=== PATIENT | male | born 1960 | race African-American/Black ===

== ENCOUNTER 2021-10-08 09:02 | Observation (INO) ==
--- NOTE | 2021-10-08 09:17 | Emergency Department Note ---
History of Present Illness General Chief complaint: Cardiac Assessment Stated complaint: CHEST PRESSURE, WEAKNESS, FATIGUE Time Seen by Provider: 10/08/21 09:04 Source: patient History of Present Illness Provider complaint: Chest pain Onset (ago): hour(s) Location: chest and left Radiation: neck Severity: moderate Pain Consistency: + intermittent Quality: + other (Pressure) Relieved By: + medication (3 sublingual nitroglycerin) Associated symptoms: + chest pain, + diaphoresis, + shortness of breath and + other (Lightheadedness); no cough, no fever/chills or no nausea/vomiting This is a 61-year-old male with a history of hypertension and high cholesterol presenting with chest pain starting upon awakening at 6 AM today. The patient states its been intermittent throughout the morning. He describes it as a pressure in the upper left part of his chest with radiation into his neck. He states it is associated with sweating and shortness of breath. In the ambulance he did receive aspirin as well as 3 sublingual nitroglycerin sprays. He states his chest pain is now completely resolved. He did feel lightheaded after receiving the nitroglycerin but states that he felt somewhat lightheaded before that as well. He denies any history of coronary artery disease. He does state that his father from a heart attack. He is an occasional smoker. He denies any fevers, cough or cold symptoms, abdominal pain, vomiting, diarrhea or urinary symptoms. Home Medications Medication Instructions Recorded Confirmed Type amlodipine 10 mg PO DAILY 10/08/21 10/08/21 History atorvastatin 10 mg tablet 10 mg PO DAILY 10/08/21 10/08/21 History carvedilol 3.125 mg tablet 3.125 mg PO BID 10/08/21 10/08/21 History spironolactone 25 mg tablet 25 mg PO DAILY 10/08/21 10/08/21 History Past Med/Surg History Medical History (Updated 10/08/21 @ 16:48 by Sarmad Dvei MD) High cholesterol Hypertension Tobacco abuse Surgical History No significant past surgical history Family History Father Coronary heart disease Mother Hypertension Social History Smoking Status: Current every day smoker Hx Alcohol Use: No Hx Substance Use: No Preferred Language: Tamazight Communication Ability: Effective 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 and A total of 10 systems reviewed and were otherwise negative Physical Exam Vital Signs Vital Signs - 24 hr 10/08/21 09:15 10/08/21 09:21 10/08/21 10:45 Temperature 36.7 C Temperature Source Oral Pulse Rate 74 Pulse Rate [Apical] 68 Respiratory Rate 18 18 Respiratory Depth Normal Normal Blood Pressure 137/81 Blood Pressure Mean 99 Blood Pressure Position Lying Pulse Oximetry 95 95 97 Oxygen Delivery Method Room Air Room Air Room Air Sepsis Recent Fever Within 48 Hours No Sepsis New/Unexplained Change in Mental Status No Sepsis Action Taken by Nursing No Action Required Constitutional: Vital signs reviewed. Eyes: Pupils are equal round reactive to light. Conjunctiva are noninjected. ENT: Pharynx is clear without erythema or exudate. Mucous membranes are moist. Neck supple without meningeal signs. Respiratory: Clear to auscultation bilaterally. Breath sounds are equal bila terally. Cardiovascular: Regular rate and rhythm. No rubs or gallops. GI: Soft, nondistended and nontender. Bowel sounds are present. Rectal: Guaiac negative light brown stool. Musculoskeletal: No peripheral edema. No lower extremity tenderness. Integumentary: No cyanosis. or jaundice. Neurological: The patient is awake and alert. No focal deficits. Psychiatric: Normal affect. Not anxious appearing. Course Administered Medications Heparin Sodium/Dextrose (Heparin Sodium/Dextrose) 25,000 units in 500 mls @ 20 mls/hr IV .Q24H HERB; Protocol Stop: 11/07/21 10:29 Last Admin: 10/08/21 10:29 Dose: 1,000 units/hr, 20 mls/hr Documented by: [id number] Cosigned by: [id number] Nicotine (Nicotine 21 Mg/24 Hr Tdsy) 21 mg TD QAM HERB Stop: 11/07/21 12:59 Last Admin: 10/08/21 14:14 Dose: 21 mg Documented by: [id number] Discontinued Medications Heparin Sodium (Porcine) (Heparin Sod (Porcine) 1000 Unit/Ml) 1 units IV NOW ONE Stop: 10/08/21 10:26 Last Admin: 10/08/21 10:29 Dose: 4,000 units Documented by: [id number] Cosigned by: [id number] Heparin Sodium/Dextrose (Heparin Iv Adult Wt-Based Low-Dose With Bolus Protocol) 1 ea N/A NOW STA; Protocol Stop: 10/08/21 10:10 Last Admin: 10/08/21 10:44 Dose: Not Given Documented by: [id number] Critical Care Time Critical Care Time: Yes Total Critical Care Time: 35 I have personally spent approximately 35 minutes of critical care time in the direct management of this patient. This includes bedside care, interpretation of diagnostic studies, and testing, discussion with consultants, patient, and family members, and other required patient management activities. These minutes are in excess of all separately billable procedures. Medical Decision Making Differential Diagnosis Unstable angina, CT, GERD, pleurisy, pericarditis Medical Records Attestation: I reviewed the patient's medical records. I did perform a limited focused review of portions of the patient's old chart on the electronic medical record. The patient has had no prior visits to [facility]. Home Medications Current Medication List: was personally reviewed by me Laboratory Data Attestation: I reviewed the patient's lab results. Result diagrams: 10/08/21 09:10 10/08/21 09:10 Lab Results 10/08/21 10/08/21 10/08/21 Range/Units 09:10 09:10 09:21 WBC 10.12 (4.8-10.8) K/uL RBC 5.07 (4.7-6.1) M/uL Hgb 14.9 (14.0-18.0) g/dL Hct 43.2 (42-52) % MCV 85.2 (80-100) fL MCH 29.4 (25-34) pg MCHC 34.5 (32-36) g/dL RDW Std Deviation 41.6 (36.4-46.3) fL RDW Coeff of Arturo 13.4 (11.5-14.5) % Plt Count 227 (130-400) K/uL MPV 11.2 H (7.4-10.4) fL Immature Gran % (Auto) 0.3 % Neut % (Auto) 71.7 % Lymph % (Auto) 19.1 % [place] % (Auto) 8.3 % Eos % (Auto) 0.4 % Baso % (Auto) 0.2 % Neut # (Auto) 7.26 H (1.4-6.5) K/uL Lymph # (Auto) 1.93 (1.2-3.4) K/uL [place] # (Auto) 0.84 H (0.11-0.59) K/uL Eos # (Auto) 0.04 (0-0.5) K/uL Baso # (Auto) 0.02 (0-0.2) K/uL Immature Gran # (Auto) 0.03 H (0.00-0.02) K/uL PT 11.5 (9.0-12.0) Seconds INR 1.1 (0.9-1.1) APTT 32.5 H (21.0-31.0) Seconds PTT Ratio 1.2 Sodium 137 (136-145) mmol/L Potassium 4.1 (3.5-5.1) mmol/L Chloride 102 (98-107) mmol/L Carbon Dioxide 26 (21-32) mmol/L Anion Gap 9 (3-11) BUN 9 (6-23) mg/dl Creatinine 0.86 (0.6-1.4) mg/dl Est Cr Clr Drug Dosing 107.8 ml/min Est GFR ( Amer) 108.5 ml/min Est GFR (Non-Af Amer) 93.6 ml/min BUN/Creatinine Ratio 10.5 (10-20) Glucose 96 (70-99(Fasting)) mg/dl Calcium 9.6 (8.5-10.1) mg/dl Total Bilirubin 0.5 (0.2-1.0) mg/dl AST 19 (13-39) U/L ALT 22 (7-52) U/L Alkaline Phosphatase 87 (34-104) U/L Troponin I High Sens 48.5 H (0-20) pg/ml Total Protein 7.5 (6.0-8.3) gm/dl Albumin 4.1 (3.4-5.0) gm/dl Globulin 3.4 (2.5-4.0) gm/dl Albumin/Globulin Ratio 1.2 (0.9-2) Lipase 22 (11-82) U/L SARS-CoV-2, RNA, NAAT (NEGATIVE) 10/08/21 10/08/21 Range/Units 09:23 10:37 WBC (4.8-10.8) K/uL RBC (4.7-6.1) M/uL Hgb (14.0-18.0) g/dL Hct (42-52) % MCV (80-100) fL MCH (25-34) pg MCHC (32-36) g/dL RDW Std Deviation (36.4-46.3) fL RDW Coeff of Arturo (11.5-14.5) % Plt Count (130-400) K/uL MPV (7.4-10.4) fL Immature Gran % (Auto) % Neut % (Auto) % Lymph % (Auto) % [place] % (Auto) % Eos % (Auto) % Baso % (Auto) % Neut # (Auto) (1.4-6.5) K/uL Lymph # (Auto) (1.2-3.4) K/uL [place] # (Auto) (0.11-0.59) K/uL Eos # (Auto) (0-0.5) K/uL Baso # (Auto) (0-0.2) K/uL Immature Gran # (Auto) (0.00-0.02) K/uL PT (9.0-12.0) Seconds INR (0.9-1.1) APTT (21.0-31.0) Seconds PTT Ratio Sodium (136-145) mmol/L Potassium (3.5-5.1) mmol/L Chloride (98-107) mmol/L Carbon Dioxide (21-32) mmol/L Anion Gap (3-11) BUN (6-23) mg/dl Creatinine (0.6-1.4) mg/dl Est Cr Clr Drug Dosing ml/min Est GFR ( Amer) ml/min Est GFR (Non-Af Amer) ml/min BUN/Creatinine Ratio (10-20) Glucose (70-99(Fasting)) mg/dl Calcium (8.5-10.1) mg/dl Total Bilirubin (0.2-1.0) mg/dl AST (13-39) U/L ALT (7-52) U/L Alkaline Phosphatase (34-104) U/L Troponin I High Sens 48.7 H (0-20) pg/ml Total Protein (6.0-8.3) gm/dl Albumin (3.4-5.0) gm/dl Globulin (2.5-4.0) gm/dl Albumin/Globulin Ratio (0.9-2) Lipase (11-82) U/L SARS-CoV-2, RNA, NAAT NEGATIVE (NEGATIVE) Imaging Data Radiologist's Impression: Chest X-Ray 10/08/21 09:10 XR chest 1V portable HISTORY: 61 years-old Male Chest Pain acute atypical chest pain COMPARISON: None TECHNIQUE: Portable AP view of the chest FINDINGS: The cardiac silhouette is mildly enlarged. Atherosclerosis of the thoracic aorta. Azygos lobe and fissure. No pneumothorax, large pleural effusion, overt or overt pulmonary edema. Mild left basilar opacities. Partial emphysema with mild interstitial coarsening. Degenerative changes of the shoulders and spine. IMPRESSION: 1. Mild retrocardiac left basilar opacities are suggestive of atelectasis versus pneumonitis.. 2. Questioned pulmonary emphysema. ACT 112: Negative or not required by law. The above report was generated using voice recognition software. It may contain grammatical, syntax or spelling errors. Electronically signed by: Tobi Zepeda M.D. 10/08/2021 9:30 AM ECG Data Attestation: I personally reviewed and interpreted this ECG as follows: Indication: + chest pain Rate (beats per minute): 75 Rhythm: + normal sinus ECG ST segments: + ST depression, + T-wave inversions and + repolarization abnormalities ECG Findings: + PACs and + LVH Comparison ECG Date: no prior available Additional Comments: Repeat twelve-lead EKG performed at 9:34 AM per my interpretation demonstrates sinus rhythm at a rate of 71 bpm. He has continued PACs as well as LVH with repolarization abnormality. He has continued T wave inversions and ST depressions. The EKG is essentially unchanged from the prior 1. He has no chest pain or symptoms at the time of the EKG. MDM Narrative I did evaluate the patient as noted above. The patient is presenting with chest pressure since this morning upon waking up. He states its been intermittent and he was given 3 sublingual nitroglycerin in the ambulance. His chest pain is now completely resolved. He was also given aspirin prior to arrival. I did place an order for continuous cardiac monitoring. The monitor showed normal sinus rhythm at a rate of 74 bpm. I did order and personally review the patient's 12-lead EKG as described above. He has LVH with repolarization abnormalities. There are T wave inversions in the precordial leads over V4 to V6. He also has T wave inversions in the high lateral leads and some ST depressions in the inferior leads. No old EKG is available for comparison. I did order a second EKG as noted above. He has continued ST depressions and T wave inversions. No change from prior EKG. He is symptom-free currently other than feeling weak. I didorder and personally reviewed the images of the patient's chest x-ray as described above. He appears to have possible at electasis and pulmonary emphysema. His mediastinum is not widened. I did order and review the patient's blood work as noted in the electronic medical record. CBC is unremarkable without leukocytosis or anemia. Platelet count is 227. CMP is unremarkable. Lipase is 22. High-sensitivity troponin is slightly elevated at 48.5. I did reassess the patient. He is feeling generally weak but denies any shortness of breath or chest discomfort or pain. I did discuss the test results with him. I was concerned about acute coronary syndrome given his symptomatology and his abnormal EKG and positive troponin. I did recommend anticoagulation with heparin. I did discuss risks and benefits. He was in agreement. He is guaiac negative on rectal examination. I did start him on a heparin bolus and drip. I did discuss case with the machine adjuster leader case trim as well as Dr. Moraes of internal medicine. He will consult the material handler 2nd shift. Impression & Plan NSTEMI (non-ST elevated myocardial infarction) Discharge Plan Visit Data Chief Complaint: Cardiac Assessment Stated Complaint: CHEST PRESSURE, WEAKNESS, FATIGUE ED Provider: Sarmad Devi Discharge Problem: NSTEMI (non-ST elevated myocardial infarction) Patient Disposition: Admitted As Inpatient Discharge Instructions Interventions: ED Discharge Assessment Last Done: 10/08/21 12:11
[2021-10-08 09:26] LABS: Basophils # (auto) 0.02 K/uL (0-0.2); Basophils % (auto) 0.2 %; Eosinophils # (auto) 0.04 K/uL (0-0.5); Eosinophils % (auto) 0.4 %; Hematocrit (blood only) 43.2 % (42-52); Hemoglobin 14.9 g/dL (14.0-18.0); Immature Granulocytes # (auto) 0.03 K/uL (0.00-0.02); Immature Granulocytes % (auto) 0.3 %; Lymphocytes # (auto) 1.93 K/uL (1.2-3.4); Lymphocytes % (auto) 19.1 %; Mean Corpuscular Hemoglobin 29.4 pg (25-34); Mean Corpuscular Hgb Conc 34.5 g/dL (32-36); Mean Corpuscular Volume 85.2 fL (80-100); Mean Platelet Volume 11.2 fL (7.4-10.4); Monocytes # (auto) 0.84 K/uL (0.11-0.59); Monocytes % (auto) 8.3 %; Neutrophils # (auto) 7.26 K/uL (1.4-6.5); Neutrophils % (auto) 71.7 %; Platelet Count 227 K/uL (130-400); RDW Coefficient of Variation 13.4 % (11.5-14.5); RDW Standard Deviation 41.6 fL (36.4-46.3); Red Blood Count 5.07 M/uL (4.7-6.1); White Blood Count 10.12 K/uL (4.8-10.8)
--- NOTE | 2021-10-08 09:33 | XRay Report ---
XR chest 1V portable HISTORY: 61 years-old Male Chest Pain acute atypical chest pain COMPARISON: None TECHNIQUE: Portable AP view of the chest FINDINGS: The cardiac silhouette is mildly enlarged. Atherosclerosis of the thoracic aorta. Azygos lobe and fis sure. No pneumothorax, large pleural effusion, overt or overt pulmonary edema. Mild left basilar opac ities. Partial emphysema with mild interstitial coarsening. Degenerative changes of the shoulders and spine. IMPRESSION: 1. Mild retrocardiac left basilar opacities are suggestive of atelectasis versus pneumonitis.. 2. Questioned pulmonary emphysema. ACT 112: Negative or not required by law. The above report was generated using voice recognition software. It may contain grammatical, syntax o r spelling errors. Electronically signed by: Tobi Zepeda M.D. 10/08/2021 9:30 AM
[2021-10-08 09:52] LABS: Albumin Globulin Ratio 1.2 (0.9-2); Albumin Level 4.1 gm/dl (3.4-5.0); BUN Creatinine Ratio 10.5 (10-20); Bilirubin,Total 0.5 mg/dl (0.2-1.0); Calcium 9.6 mg/dl (8.5-10.1); Creatinine Clr Calc Pharmacy 107.8 ml/min; Est GFR (African American) 108.5 ml/min; Est GFR (Non-African American) 93.6 ml/min; Globulin 3.4 gm/dl (2.5-4.0); Potassium 4.1 mmol/L (3.5-5.1); Total Protein 7.5 gm/dl (6.0-8.3); Troponin I High Sensitivity 48.5 pg/ml (0-20)
[2021-10-08] MEDS ORDERED: Heparin IV Adult Wt-Based Low-Dose WITH Bolus Protocol STA (10:09)
[2021-10-08] MEDS ORDERED: HEPARIN SOD (PORCINE) 1000 UNIT/ML IV ONE (10:25)
[2021-10-08 10:26] LABS: INR 1.1 (0.9-1.1); Partial Thromboplastin Ratio 1.2; Partial Thromboplastin Time 32.5 Seconds (21.0-31.0); Prothrombin Time 11.5 Seconds (9.0-12.0)
[2021-10-08] MEDS: HEPARIN SODIUM/DEXTROSE 25,000 UNITS/500 ML BAG IV SCH (10:29)
--- NOTE | 2021-10-08 11:26 | History & Physical Report ---
Date of Service October 08, 2021 Assessment & Plan (1) NSTEMI (non-ST elevated myocardial infarction): Plan: Convincing story for NSTEMI in a high-risk patient. EKG concerning for anterior STEMI to me with ST elevations in V1-V3 and reciprocal changes in II & III. EKG discussed with on-call interventionalist who feels these are typical LVH changes, but agrees with treating as below: - Continue ASA (324 mg given in ambulance) - Continue heparin gtt - Continue beta-cricket and statin (raised both on admission) - Treat any further chest pain with nitro - Echocardiogram - Cardiology consult (2) Hypertension: Plan: Quite resistant per patient, requiring 3 meds. - Continue beta-cricket - Hold amlodipine and spironolactone for now -> Restart as needed or consider ACEi/ARB given concern for CAD. (3) Tobacco abuse: Plan: Smokes 4-5 cigarettes a day. Counseled on cessation. - Patient requests a nicotine patch; ordered (4) DVT prophylaxis: Plan: Presently on heparin gtt for NSTEMI History of Present Illness Primary Care Provider: NO PCP 61yo M w/ hx of HTN who presents with NSTEMI. The patient reports that he was just getting into the shower around 6:30am this morning when he had an acute onset of left-sided chest pain that radiated up to the neck. He also felt diaphoretic and short of breath. He finished his shower and reports that the pain improved somewhat with drinking cold water. 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 He denies any palpitations or nausea/vomiting with this. He works at [employer], and an RN saw him and said he did not look good. He reports continued 5-6/10 pain this entire time (hours, per his report). The RN called an ambulance. In the ambulance, he was given ASA 324 mg and 3 sublingual nitroglycerin which relieved the pain. The pain has not returned, and his current pain level is a 0/10 during my interview. Home Medications Medication Instructions Recorded Confirmed Type amlodipine 10 mg PO DAILY 10/08/21 10/08/21 History atorvastatin 10 mg tablet 10 mg PO DAILY 10/08/21 10/08/21 History carvedilol 3.125 mg tablet 3.125 mg PO BID 10/08/21 10/08/21 History spironolactone 25 mg tablet 25 mg PO DAILY 10/08/21 10/08/21 History Past Med/Surg History Medical History (Updated 10/08/21 @ 11:18 by James Moraes MD) High cholesterol Hypertension Tobacco abuse Surgical History No significant past surgical history Family History Father Coronary heart disease Mother Hypertension Social History Smoking Status: Current some day smoker Preferred Language: Eritre[place] Feels Safe at Home: Yes Review of Systems Review of Systems: All systems reviewed & are unremarkable except as noted in HPI & below Physical Exam Constitutional: WD/WN, vitals as above Eyes: EOM intact bilaterally; no conjunctival abnormality ENMT: external ear and nose normal, oropharynx normal Neck: trachea midline, no thyromegaly normal visual inspection Respiratory: normal respiratory effort, lungs clear to auscultation no respiratory distress Cardiovascular: RRR, no murmur, no edema Gastrointestinal (Abdomen): Inspection/Auscultation: abdomen normal to inspection; abdomen not distended Musculoskeletal: no cyanosis or clubbing, extremities motor strength 5/5 Skin: no rashes, warm and dry Neurologic: moves all extremities and awake Psychiatric: Orientation: alert, oriented to person and cooperative Results & Data Results & Data ([facility]) Vital Signs (Past 12 Hours) Vital Signs Temp Pulse Pulse Resp BP Pulse Ox 10/08/21 10:45 68 18 97 10/08/21 09:21 95 10/08/21 09:15 36.7 C 74 18 137/81 95 Code Status & VTE Plan VTE Prophylaxis Plan VTE Prophylaxis will be ordered: Yes PG Care Time/CCT Total # of Minutes Spent Total Time Spent with Patient: Total time spent is greater than 50% in coordination of care (as documented) at patient's floor/unit and/or counseling patient: Coding Level of Care Code 61227 Initial Inpt Care Lvl 3 Diagnoses NSTEMI (non-ST elevated myocardial infarction) I21.4 Hypertension I10 DVT prophylaxis Z29.9 Tobacco abuse Z72.0
[2021-10-08] MEDS ORDERED: ONDANSETRON INJ 2 MG/ML 2 ML VIAL IV PRN (12:39)
[2021-10-08] MEDS ORDERED: ACETAMINOPHEN 325 MG TAB PO PRN (12:39)
[2021-10-08] MEDS: NICOTINE 21 MG/24 HR TDSY TD SCH (14:14)
--- NOTE | 2021-10-08 15:04 | XCELERA ---
[id number]
[2021-10-08 17:01] LABS: Partial Thromboplastin Ratio 1.4; Partial Thromboplastin Time 39.7 Seconds (21.0-31.0)
[2021-10-08] MEDS: carvediloL 3.125 MG TAB PO SCH (20:31)
[2021-10-09 01:26] LABS: Partial Thromboplastin Ratio 1.5; Partial Thromboplastin Time 40.8 Seconds (21.0-31.0)
[2021-10-09] MEDS: HEPARIN SODIUM/DEXTROSE 25,000 UNITS/500 ML BAG IV SCH (06:30)
[2021-10-09 08:03] LABS: Hematocrit (blood only) 40.6 % (42-52); Hemoglobin 13.7 g/dL (14.0-18.0); Mean Corpuscular Hgb Conc 33.7 g/dL (32-36); Mean Platelet Volume 11.3 fL (7.4-10.4); Platelet Count 196 K/uL (130-400); RDW Coefficient of Variation 13.7 % (11.5-14.5); RDW Standard Deviation 43.3 fL (36.4-46.3); Red Blood Count 4.72 M/uL (4.7-6.1); White Blood Count 4.78 K/uL (4.8-10.8)
[2021-10-09] MEDS: ASPIRIN 81 MG CHEW PO SCH (08:10)
[2021-10-09] MEDS: NICOTINE 21 MG/24 HR TDSY TD SCH (08:10)
[2021-10-09] MEDS: carvediloL 3.125 MG TAB PO SCH (08:10)
[2021-10-09] MEDS: ATORVASTATIN 40 MG TAB PO SCH (08:10)
[2021-10-09 08:12] LABS: Partial Thromboplastin Ratio 1.5; Partial Thromboplastin Time 41.1 Seconds (21.0-31.0)
[2021-10-09 08:32] LABS: BUN Creatinine Ratio 13.8 (10-20); Calcium 8.8 mg/dl (8.5-10.1); Creatinine Clr Calc Pharmacy 106.6 ml/min; Est GFR (Non-African American) 93.2 ml/min; Magnesium 1.7 mg/dl (1.7-2.4)
--- NOTE | 2021-10-09 09:28 | Cardiology Consultation ---
Date of Consultation October 09, 2021 Assessment & Plan (1) Chest discomfort: (2) Elevated troponin: (3) Hypertension: (4) High cholesterol: (5) Tobacco abuse: 1. Chest discomfort: Although his chest discomfort is consistent with myocardial ischemia/injury the duration and severity is out of proportion to the minor troponin elevation. Still the troponin elevation is not typical of noncardiac chest discomfort. The electrocardiogram is somewhat abnormal although we do not have a comparison and it could be just left ventricular hypertrophy although his echocardiogram does not show severe left ventricular hypertrophy. I am concerned that he might have pericarditis or myocarditis, al though the response of his chest discomfort to nitroglycerin and aspirin would argue against it. Since he evidently had a stress test a month ago, assuming it was a good quality stress test (adequate heart rate, appropriate imaging) and negative I do not think we should pursue further cardiac evaluation. We can discontinue the heparin at this point. I probably would continue aspirin. 2. Elevated troponin: His troponin is elevated but minimally so and with no change in pattern to suggest either demand ischemia or myocardial infarction. I would get another troponin today and tomorrow, but assuming that there is no real change in the pattern I do not think this represents a coronary event. Perhaps it is a normal finding in his case. 3. Hypertension: He has a history of hypertension although interestingly his blood pressure was not elevated until sometime after admission and remains elevated. He is treated for hypertension as an outpatient, his amlodipine I believe was discontinued here which may explain that. There is a suggestion on his echocardiogram that he has inadequately treated hypertension however with the left ventricular hypertrophy and with that I would go up on his beta- blockade. I am going to increase his carvedilol to 6.25 mg twice a day. 4. Hypercholesterolemia: He was on low-dose atorvastatin as an outpatient, it may be reasonable to go up on his atorvastatin although we have not documented coronary artery disease at this point. 5. Tobacco abuse: He certainly should quit using tobacco for a multitude of reasons. History of Present Illness Reason for Consultation: Chest discomfort, elevated troponin Attending Physician: James Moraes MD History of Present Illness This is a 61-year-old male with a history of hypertension and hypercholesterolemia but no prior known coronary artery disease who developed chest discomfort on October 08, 2021 and presented to the emergency room. The discomfort was intermittent throughout that morning and was described as chest pressure with radiation to his neck. It was associated with diaphoresis and shortness of breath. He was given nitroglycerin and aspirin in the ambulance with resolution of his discomfort. Interestingly he went to [place] about a month ago he tells me (I believe because he could not get an appointment here) and was seen by cardiology and had a stress test which is reported by him as normal. Evidently he gave the results to the [employer] where he works but did not keep a copy. His initial evaluation emergency room included an electrocardiogram which showed sinus rhythm with premature atrial beats and left ventricular hypertrophy with repolarization abnormalities as well as some anterior J-point elevation. He did have some inferior ST depression but no evidence of STEMI. An electrocardiogram half an hour later showed sinus rhythm with premature atrial beats and a similar pattern of left ventricular hypertrophy, repolarization abnormalities and J- point elevation. There were no prior electrocardiograms for comparison. A third electrocardiogram done several hours after presentation showed a very similar pattern. His cardiac enzymes were elevated but flat, 48.5 on presentati on, 48.7 an hour and a half later and 49.56 hours after presentation. An electrocardiogram done on October 08, 2021 at 1332 shows normal left ventricular systolic function with no regional wall motion abnormalities, mild concentric left ventricular hyper trophy and no effusion. In the emergency room heparin was started, as well as aspirin. Low-dose carvedilol was continued from his outpatient medications as well as atorvastatin although at an increased dose. He does have risk factors of coronary disease including hypertension, hypercholesterolemia, family history and current tobacco use. Home Medications Medication Instructions Recorded Confirmed Type amlodipine 10 mg PO DAILY 10/08/21 10/08/21 History atorvastatin 10 mg tablet 10 mg PO DAILY 10/08/21 10/08/21 History carvedilol 3.125 mg tablet 3.125 mg PO BID 10/08/21 10/08/21 History spironolactone 25 mg tablet 25 mg PO DAILY 10/08/21 10/08/21 History Patient History Medical History High cholesterol Hypertension Tobacco abuse Surgical History No significant past surgical history Family History Father Coronary heart disease Mother Hypertension Social History Smoking Status: Current every day smoker Hx Alcohol Use: No Hx Substance Use: No Preferred Language: Peruvian Communication Ability: Effective Services Tech Required: No Current Living Situation: Alone Feels Safe at Home: Yes Review of Systems Review of Systems: All systems reviewed & are unremarkable except as noted in HPI & below Physical Exam Physical Exam: Constitutional: Alert, cooperative and in no distress. HEENT: Unremarkable Neck: No jugular venous distention, carotid pulses are normal and equal bilaterally without bruits. Pulmonary: Clear to auscultation bilaterally. Cardiac: Regular rhythm with no murmur, gallop or rub. Abdomen: Soft, nontender with normal bowel sounds. Extremities: No edema. Distal pulses intact. Neurologic: No focal findings. Gait is steady. Skin: No rash, ecchymoses or petechiae. Results & Data ([facility]) Vital Signs (Past 12 Hours) Vital Signs Temp Pulse Pulse Resp BP BP Pulse Ox 10/09/21 08:56 36.4 C L 69 18 148/89 H 93 10/09/21 03:34 36.5 C 66 16 142/76 H 91 10/08/21 22:45 72 10/08/21 22:40 36.7 C 63 16 161/82 H 95 Laboratory Results Cardiac Enzymes 10/08/21 10/08/21 10/08/21 Range/Units 09:10 10:37 15:02 AST 19 (13-39) U/L Troponin I High Sens 48.5 H 48.7 H 49.5 H (0-20) pg/ml Coagulation 10/08/21 10/08/21 10/09/21 Range/Units 09:21 16:37 01:04 PT 11.5 (9.0-12.0) Seconds APTT 32.5 H 39.7 H 40.8 H (21.0-31.0) Seconds 10/09/21 Range/Units 07:26 PT (9.0-12.0) Seconds APTT 41.1 H (21.0-31.0) Seconds CBC 10/08/21 10/09/21 Range/Units 09:10 07:26 WBC 10.12 4.78 L D (4.8-10.8) K/uL RBC 5.07 4.72 (4.7-6.1) M/uL Hgb 14.9 13.7 L (14.0-18.0) g/dL Hct 43.2 40.6 L (42-52) % Plt Count 227 196 (130-400) K/uL Neut # (Auto) 7.26 H (1.4-6.5) K/uL Lymph # (Auto) 1.93 (1.2-3.4) K/uL [place] # (Auto) 0.84 H (0.11-0.59) K/uL Eos # (Auto) 0.04 (0-0.5) K/uL Baso # (Auto) 0.02 (0-0.2) K/uL Comprehensive Metabolic Panel 10/08/21 10/09/21 Range/Units 09:10 07:26 Sodium 137 138 (136-145) mmol/L Potassium 4.1 4.0 (3.5-5.1) mmol/L Chloride 102 104 (98-107) mmol/L Carbon Dioxide 26 30 (21-32) mmol/L BUN 9 12 (6-23) mg/dl Creatinine 0.86 0.87 (0.6-1.4) mg/dl Glucose 96 90 (70-99(Fasting)) mg/dl Calcium 9.6 8.8 (8.5-10.1) mg/dl AST 19 (13-39) U/L ALT 22 (7-52) U/L Alkaline Phosphatase 87 (34-104) U/L Total Protein 7.5 (6.0-8.3) gm/dl Albumin 4.1 (3.4-5.0) gm/dl Intake and Output 10/08/21 10/09/21 10/09/21 22:59 06:59 14:59 Intake Total 164.333 / 442.366 278.033 / 442.366 35.2 / 35.2 Output Total 450 / 450 Balance 164.333 / -7.634 -171.967 / -7.634 35.2 / 35.2 Intake: IV 164.333 / 442.366 278.033 / 442.366 35.2 / 35.2 Heparin Sodium/Dextrose 25,000 164.333 / 442.366 278.033 / 442.366 35.2 / 35.2 units In 500 ml @ 1,000 UNITS/ HR 20 mls/hr IV .Q24H HERB Rx#: [id number] Output: Urine 450 / 450 Other: # Unmeasured Voids 1 Weight 87.5 kg Weight Measurement Method Built in [facility] Diagnostic Findings Telemetry: Sinus rhythm in the 60s, PVCs and PACs. No significant abnormality. PG Care Time/CCT Total # of Minutes Spent Total Time Spent with Patient: Total time spent is greater than 50% in coordination of care (as documented) at patient's floor/unit and/or counseling patient: Coding Level of Care Code 85503 Inpt Consult Level 4 Diagnoses Chest discomfort R07.89 Elevated troponin R77.8 Hypertension I10 High cholesterol E78.00 Tobacco abuse Z72.0
[2021-10-09] MEDS ORDERED: carvediloL 3.125 MG TAB PO ONE (09:33)
--- NOTE | 2021-10-09 10:53 | Hospitalist Progress Note ---
Date of Service October 09, 2021 Assessment & Plan (1) Unstable angina: Plan: Convincing story for cardiac pain in a high-risk patient. Troponins stable at ~40, so no ACS. EKGs show LVH with repolarization changes; have been stable so far. - Continue ASA - Continue heparin gtt after discussion with cardiology last night. - Continue beta-cricket and statin (raised both on admission) - Treat any further chest pain with nitro - Echo on 10/08 showed EF 60 - 65% with no RWMA. No valvular issues. - Cardiology consulted - Pending; however, per discussion, considering possible stress test vs. cardiac cath. (2) Hypertension: Plan: Quite resistant per patient, requiring 3 meds. - Continue beta-cricket & amlodipine - Hold spironolactone for now -> Restart as needed or consider ACEi/ARB given concern for CAD. (3) Tobacco abuse: Plan: Smokes 4-5 cigarettes a day. Counseled on cessation. - Patient requested a nicotine patch; ordered (4) DVT prophylaxis: Plan: Presently on heparin gtt for unstable angina Admission and Anticipated Discharge Date Admission Date: October 08, 2021 Subjective Seen today. Still feeling well. No chest pain overnight. Reports no fevers/chills, chest pain, shortness of breath, abdominal pain, nausea, or vomiting. Physical Exam Constitutional: WD/WN, vitals as above Eyes: EOM intact bilaterally; no conjunctival abnormality ENMT: external ear and nose normal, oropharynx normal Neck: trachea midline, no thyromegaly normal visual inspection Respiratory: normal respiratory effort, lungs clear to auscultation no respiratory distress Cardiovascular: RRR, no murmur, no edema Gastrointestinal (Abdomen): Inspection/Auscultation: abdomen normal to inspection; abdomen not distended Musculoskeletal: no cyanosis or clubbing, extremities motor strength 5/5 Skin: no rashes, warm and dry Neurologic: moves all extremities and awake Psychiatric: Orientation: alert, oriented to person and cooperative Results & Data Results & Data ([facility]) Vital Signs (Past 12 Hours) Vital Signs Temp Pulse Resp BP BP Pulse Ox 10/09/21 08:56 36.4 C L 69 18 148/89 H 93 10/09/21 03:34 36.5 C 66 16 142/76 H 91 PG Care Time/CCT Total # of Minutes Spent Total Time Spent with Patient: Total time spent is greater than 50% in coordination of care (as documented) at patient's floor/unit and/or counseling patient: Coding Level of Care Code 62561 Subseq Hosp Care Lvl 3 Diagnoses Hypertension I10 Tobacco abuse Z72.0 DVT prophylaxis Z29.9 Unstable angina I20.0
--- NOTE | 2021-10-09 19:29 | Electrocardiogram Report ---
Test Reason : Blood Pressure : / mmHG Vent. Rate : 075 BPM Atrial Rate : 075 BPM P-R Int : 176 ms QRS Dur : 100 ms QT Int : 388 ms P-R-T Axes : 068 037 265 degrees QTc Int : 433 ms Sinus rhythm with Premature atrial complexes Left ventricular hypertrophy with repolarization abnormality Abnormal ECG No previous ECGs available Confirmed by Levi Morgan ([id number]) on 10/09/2021 7:29:08 PM Referred By: REFERRED SELF Confirmed By:Levi Morgan
--- NOTE | 2021-10-09 19:31 | Electrocardiogram Report ---
Test Reason : Blood Pressure : / mmHG Vent. Rate : 071 BPM Atrial Rate : 071 BPM P-R Int : 180 ms QRS Dur : 098 ms QT Int : 398 ms P-R-T Axes : 055 019 -72 degrees QTc Int : 432 ms Sinus rhythm with Premature atrial complexes Left ventricular hypertrophy with repolarization abnormality Abnormal ECG When compared with ECG of 08-OCT-2021 09:05, (unconfirmed) No significant change was found Confirmed by Levi Morgan ([id number]) on 10/09/2021 7:30:59 PM Referred By: REFERRED SELF Confirmed By:Levi Morgan
--- NOTE | 2021-10-09 19:39 | Electrocardiogram Report ---
Test Reason : Blood Pressure : / mmHG Vent. Rate : 067 BPM Atrial Rate : 067 BPM P-R Int : 188 ms QRS Dur : 098 ms QT Int : 404 ms P-R-T Axes : 056 027 -64 degrees QTc Int : 426 ms Sinus rhythm with Premature atrial complexes with Aberrant conduction Left ventricular hypertrophy with repolarization abnormality Abnormal ECG When compared with ECG of 08-OCT-2021 09:34, (unconfirmed) No significant change was found Confirmed by Levi Morgan ([id number]) on 10/09/2021 7:39:12 PM Referred By: REFERRED SELF Confirmed By:Levi Morgan
[2021-10-09] MEDS ORDERED: MELATONIN 3 MG TAB PO SCH (21:00)
[2021-10-09] MEDS: carvediloL 6.25 MG TAB PO SCH (21:01)
[2021-10-10 06:04] LABS: Hematocrit (blood only) 41.8 % (42-52); Hemoglobin 13.7 g/dL (14.0-18.0); Mean Corpuscular Hemoglobin 28.5 pg (25-34); Mean Corpuscular Hgb Conc 32.8 g/dL (32-36); Mean Corpuscular Volume 86.9 fL (80-100); Mean Platelet Volume 11.2 fL (7.4-10.4); Platelet Count 192 K/uL (130-400); RDW Coefficient of Variation 13.7 % (11.5-14.5); Red Blood Count 4.81 M/uL (4.7-6.1)
[2021-10-10 06:33] LABS: Troponin I High Sensitivity 24.8 pg/ml (0-20)
[2021-10-10 06:42] LABS: BUN Creatinine Ratio 11.3 (10-20); Creatinine Clr Calc Pharmacy 87.5 ml/min; Est GFR (African American) 87.4 ml/min; Est GFR (Non-African American) 75.4 ml/min; Magnesium 1.9 mg/dl (1.7-2.4); Potassium 4.5 mmol/L (3.5-5.1)
[2021-10-10] MEDS: carvediloL 6.25 MG TAB PO SCH (07:50)
[2021-10-10] MEDS: ATORVASTATIN 40 MG TAB PO SCH (07:51)
[2021-10-10] MEDS: ASPIRIN 81 MG CHEW PO SCH (07:51)
[2021-10-10] MEDS: NICOTINE 21 MG/24 HR TDSY TD SCH (07:52)
--- NOTE | 2021-10-10 08:19 | Cardiology Progress Note ---
Date of Service October 10, 2021 Assessment & Plan (1) Chest discomfort: (2) Elevated troponin: (3) Hypertension: (4) High cholesterol: (5) Tobacco abuse: Plan: 1. Chest discomfort: Although his chest discomfort on presentation was consistent with myocardial ischemia/injury the duration and severity is out of proportion to the minor troponin elevation. Still the troponin elevation is not typical of noncardiac chest discomfort. The electrocardiogram is somewhat abnormal although we do not have a comparison and it could be just left ventricular hypertrophy although his echocardiogram does not show severe left ventricular hypertrophy. I am concerned that he might have pericarditis or myocarditis, although the response of his chest discomfort to nitroglycerin and aspirin would argue against it. Since he evidently had a stress test a month ago, assuming it was a good quality stress test (adequate heart rate, appropriate imaging) and negative I do not think we should pursue further cardiac evaluation. I probably would continue aspirin. In the absence of symptoms I would not treat him for pericarditis or myocarditis. 2. Elevated troponin: His troponin is elevated but minimally so with a very gradual drop suggesting demand ischemia (perhaps hypertension LVH) rather than a coronary event. Assuming he did have a stress test a month ago I would not pursue further. 3. Hypertension: He has a history of hypertension although interestingly his b lood pressure was not elevated until sometime after admission and remains elevated. He is treated for hypertension as an outpatient, his amlodipine I believe was discontinued here initially which may explain some of it. There is a suggestion on his echocardiogram that he has inadequately treated hypertension however with the left ventricular hypertrophy and with that he should be maintained on beta-blockade. I did increase his carvedilol to 6.25 mg twice a day yesterday, his blood pressure remains elevated. 4. Hypercholesterolemia: He was on low-dose atorvastatin as an outpatient, it may be reasonable to go up on his atorvastatin although we have not documented coronary artery disease at this point. 5. Tobacco abuse: He certainly should quit using tobacco for a multitude of reasons. Admission and Anticipated Discharge Date Admission Date: October 08, 2021 Subjective He is feeling well and is anxious to go home. Physical Exam Physical Exam: Constitutional: Alert, cooperative and in no distress. HEENT: Unremarkable Neck: No jugular venous distention, carotid pulses are normal and equal bilaterally without bruits. Pulmonary: Clear to auscultation bilaterally. Cardiac: Regular rhythm with no murmur, gallop or rub. Abdomen: Soft, nontender with normal bowel sounds. Extremities: No edema. Distal pulses intact. Neurologic: No focal findings. Gait is steady. Skin: No rash, ecchymoses or petechiae. Results & Data ([facility]) Vital Signs (Past 12 Hours) Vital Signs Temp Pulse Pulse Resp BP BP Pulse Ox 10/10/21 07:30 36.7 C 64 18 155/105 H 94 10/10/21 04:22 36.7 C 54 L 18 167/82 H 95 10/09/21 23:45 36.7 C 69 18 157/88 H 94 10/09/21 22:20 66 Laboratory Results Cardiac Enzymes 10/09/21 10/10/21 Range/Units 11:06 05:43 Troponin I High Sens 31.0 H D 24.8 H (0-20) pg/ml CBC 10/10/21 Range/Units 05:43 WBC 5.30 (4.8-10.8) K/uL RBC 4.81 (4.7-6.1) M/uL Hgb 13.7 L (14.0-18.0) g/dL Hct 41.8 L (42-52) % Plt Count 192 (130-400) K/uL Comprehensive Metabolic Panel 10/09/21 10/10/21 Range/Units 07:26 05:43 Sodium 138 137 (136-145) mmol/L Potassium 4.0 4.5 (3.5-5.1) mmol/L Chloride 104 102 (98-107) mmol/L Carbon Dioxide 30 31 (21-32) mmol/L BUN 12 12 (6-23) mg/dl Creatinine 0.87 1.06 (0.6-1.4) mg/dl Glucose 90 91 (70-99(Fasting)) mg/dl Calcium 8.8 9.0 (8.5-10.1) mg/dl Intake and Output 10/09/21 10/10/21 10/10/21 22:59 06:59 14:59 Intake Total 650 / 758.0 Output Total 500 / 500 Balance -500 / 258.0 650 / 258.0 Intake: Oral 650 / 650 Output: Urine 500 / 500 Other: # Unmeasured Voids 1 Weight 87.7 kg Weight Measurement Method Built in [facility] Diagnostic Findings Telemetry: Sinus rhythm, no significant arrhythmia PG Care Time/CCT Total # of Minutes Spent Total Time Spent with Patient: Total time spent is greater than 50% in coordination of care (as documented) at patient's floor/unit and/or counseling patient: Coding Level of Care Code 76015 Subseq Hosp Care Lvl 2 Diagnoses Chest discomfort R07.89 Elevated troponin R77.8 Hypertension I10 High cholesterol E78.00 Tobacco abuse Z72.0
[2021-10-10] MEDS ORDERED: amLODIPine BESYLATE 5 MG TAB PO SCH (09:00)
--- NOTE | 2021-10-10 16:29 | Discharge Summary ---
Date of Service October 10, 2021 Admission HPI Per Admitting Provider 61yo M w/ hx of HTN who presents with NSTEMI. The patient reports that he was just getting into the shower around 6:30am this morning when he had an acute onset of left-sided chest pain that radiated up to the neck. He also felt diaphoretic and short of breath. He finished his shower and reports that the pain improved somewhat with drinking cold water. 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 He denies any palpitations or nausea/vomiting with this. He works at [employer], and an RN saw him and said he did not look good. He reports continued 5-6/10 pain this entire time (hours, per his report). The RN called an ambulance. In the ambulance, he was given ASA 324 mg and 3 sublingual nitroglycerin which relieved the pain. The pain has not returned, and his current pain level is a 0/10 during my interview. Principal Diagnosis Possible anginal pain vs. non-cardiac chest pain Discharge Exam Constitutional WD/WN, vitals as above Eyes EOM intact bilaterally; no conjunctival abnormality ENMT external ear and nose normal, oropharynx normal Neck trachea midline, no thyromegaly normal visual inspection Respiratory normal respiratory effort, lungs clear to auscultation no respiratory distress Cardiovascular RRR, no murmur, no edema Gastrointestinal (Abdomen) Inspection/Auscultation: abdomen normal to inspection; abdomen not distended Musculoskeletal no cyanosis or clubbing, extremities motor strength 5/5 Skin no rashes, warm and dry Neurologic moves all extremities and awake Psychiatric Orientation: alert, oriented to person and cooperative Discharge Data Allergies Allergy/AdvReac Type Severity Reaction Status Date / Time No Known Allergies Allergy Unverified 10/09/21 18:45 Consultations 10/08/21 12:39 Consult Cardiology Routine Hospital Course (1) Unstable angina: Convincing story for cardiac pain in a high-risk patient. Troponins stable at ~40, so no ACS. EKGs show LVH with repolarization changes; have been stable so far. - Continued ASA while in the hospital. - Continued heparin gtt for ~24 hours, but stopped per cardiology recommendation. - Continue beta-cricket and statin (raised both on admission), but given lack of concrete signs of CAD, just continued higher beta-cricket. - Echo on 10/08 showed EF 60 - 65% with no RWMA. No valvular issues. - Cardiology consulted - Mr. Joshi actually had a normal treadmill stress test approx. 1 month ago in [place]. Cardiology felt there was no further testing needed. He remained chest pain free his entire admission. (2) Hypertension: Quite resistant per patient, requiring 3 meds. - Continue beta-cricket & amlodipine - Raised dose of beta-cricket on discharge. - Held spironolactone, but restart on discharge given high blood pressures. (3) Tobacco abuse: Smokes 4-5 cigarettes a day. Counseled on cessation. - Patient requested a nicotine patch; ordered and then prescribed on discharge. (4) Fatigue: Had concerns of fatigue and insomnia while admitted. He reports he was taking 2-3 testosterone tablets per day that he had obtained on the internet, and his fatigue began when stopping those. Encouraged PCP f/u for thyroid, testosterone, and other testing. For insomnia, counseled conservative measures and melatonin. He reports marijuana has helped him sleep in the past, and I did tell him he could pursue medical marijuana card if he desired, but that I could not help with that. (5) DVT prophylaxis: Was on heparin gtt for unstable angina Total Time Total Time Spent Total Time Spent (In Minutes): 35 Discharge Plan Discharge Items Patient Disposition: Home - Self-Care Reason For Visit: Possible angina Discharge Diagnosis: Possible angina / chest pain Activity: Resume your previous activity Non-emergency contact: Primary Care Provider Call non-emergency contact if: your pain is not controlled and your pain is worsening Follow-up/Referrals: Alex Chu PA-C [Physician Payroll And Benefits Analyst] - 10/12/21 3:45 pm (Primary Care hospital follow up. You also have an appointment to see Dr. Haseeb Nicholas at this office, on 08/22/22 at 10am. You will need to keep this appointment with Dr. Nicholas to become formally established under his care.) Diet: Heart Healthy Addtl Attending Provider Instructions: Mr. Joshi, You were admitted to the hospital with chest pain. We were very worried that this chest pain was from your heart. Luckily, your heart is doing quite well. Your cardiac enzymes were stable and improved while you were here. Your echo (ultrasound) of your heart looked very good. Since you had a normal stress test about 1 month ago in [place], you did not need a repeat one here. Please follow up with the PCP we arranged for you to transfer your care here. For your tiredness, please discuss it with your new PCP. You felt it was because you were *not* taking the testosterone tablets that you had obtained. However, your PCP can check your testosterone, thyroid, and other tests. For your insomnia, we recommended * Ear plugs for better sleep * Melatonin to help you get to sleep * Avoid screens prior to sleeping * Go to sleep at the same time each night and get up at the same time each night * You had discussed marijuana, and we are not able to prescribe that. If you would like to pursue this, please follow with a medical marijuana doctor. I did prescribe some patches to help you quit smoking as this is the single best thing you can do to help your health. I am glad your heart is doing well! Take care! Pending Studies at Discharge: No Stand-Alone Forms: My [facility], Smoking Cessation Medications and DC Order Prescriptions: New nicotine [Nicoderm CQ] 21 mg/24 hr Patch 24 Hour 21 mg transdermal QAM Qty: 7 RF: 0 carvedilol 6.25 mg Tablet 6.25 mg PO BID Qty: 60 RF: 0 Continued atorvastatin 10 mg Tablet 10 mg PO DAILY RF: 0 spironolactone 25 mg tablet 25 mg PO DAILY RF: 0 amlodipine 10 mg 10 mg PO DAILY RF: 0 Discontinued carvedilol 3.125 mg tablet 3.125 mg PO BID RF: 0 Discharge Orders: Discharge Order (Routine); Ordered 10/10/21 Ordered By: James Moraes Admission Data Admit Date/Time: 10/08/21 11:12 Attending Provider: James Moraes Admit Provider: James Moraes Primary Care Provider: PCP,NO Other Providers: Levi Morgan Coding Level of Care Code D/C DAY MANAGEMENT >30 MINS Diagnoses Unstable angina I20.0 Hypertension I10 Tobacco abuse Z72.0 DVT prophylaxis Z29.9 Fatigue R53.83
== END 2021-10-10 17:30 | disposition home or self-care (01) ==
LOC: ED 09:02 → 2S 11:12 → INTOOBSV 11:12 → 2S 12:11

== ENCOUNTER 2022-05-26 17:36 | Observation (INO) ==
--- NOTE | 2022-05-26 19:13 | XRay Report ---
XR chest 1V portable CLINICAL HISTORY: Shortness of breath. Chest tightness. COMPARISON STUDY: Chest radiograph October 08, 2021. FINDINGS: Azygos fissure is incidentally noted. Lung volumes are normal. Lungs are clear. There is no pneumothorax or pleural effusion. Cardiac size is stable. Mediastinal contours are normal. There is no evidence for pulmonary edema. IMPRESSION: No acute cardiopulmonary findings. ACT 112: Negative or not required by law. Electronically signed by: Dionicio Dave M.D. 05/26/2022 7:12 PM
[2022-05-26 20:07] LABS: Basophils # (auto) 0.06 K/uL (0-0.2); Eosinophils % (auto) 6.8 %; Hematocrit (blood only) 45.6 % (42.0-52.0); Hemoglobin 15.8 g/dl (14.0-18.0); Immature Granulocytes # (auto) 0.03 K/uL (0.01-0.20); Immature Granulocytes % (auto) 0.5 %; Lymphocytes # (auto) 1.85 K/uL (1.2-3.4); Lymphocytes % (auto) 31.5 %; Mean Corpuscular Hemoglobin 29.3 pg (25.0-34.0); Mean Corpuscular Hgb Conc 34.6 g/dL (32.0-36.0); Mean Corpuscular Volume 84.6 fL (80.0-100.0); Mean Platelet Volume 11.1 fL (9.4-12.4); Monocytes # (auto) 0.42 K/uL (0.11-0.59); Monocytes % (auto) 7.1 %; Neutrophils # (auto) 3.12 K/uL (1.40-6.50); Neutrophils % (auto) 53.1 %; Platelet Count 185 K/uL (130-400); RDW Coefficient of Variation 13.3 % (11.5-14.5); RDW Standard Deviation 41.3 fL (36.4-46.3); Red Blood Count 5.39 M/uL (4.70-6.10); White Blood Count 5.88 K/ul (4.8-10.8)
[2022-05-26 20:22] LABS: Albumin Globulin Ratio 1.2 (0.9-2); Albumin Level 4.4 gm/dl (3.4-5.0); BUN Creatinine Ratio 11.5 (10-20); Bilirubin,Total 0.5 mg/dl (0.2-1.0); Calcium 9.6 mg/dl (8.5-10.1); Creatinine Clr Calc Pharmacy 92.8 ml/min; Est GFR (African American) 97.8 ml/min; Est GFR (Non-African American) 84.4 ml/min; Globulin 3.8 gm/dl (2.5-4.0); Potassium 4.6 mmol/L (3.5-5.1); Total Protein 8.2 gm/dl (6.0-8.3)
[2022-05-26 20:28] LABS: Troponin I High Sensitivity 25.7 pg/ml (0-20)
[2022-05-26 20:36] LABS: Partial Thromboplastin Ratio 1.2; Partial Thromboplastin Time 32.5 Seconds (21.0-31.0)
[2022-05-26] MEDS ORDERED: LABETALOL HCL IV 5 MG/ML 20ML IV STA (20:48)
--- NOTE | 2022-05-26 20:51 | Emergency Department Note ---
Impression & Plan Hypertension, Elevated troponin, Chest discomfort ADMIT ED Provider Note HPI: The patient is a 62-year-old male who presents to the emergency department with a chief complaint of shortness of breath with exertion, chest discomfort for the past week. Patient states his symptoms acutely worsened today. Patient states that he has been having increasing shortness of breath with even minimal exertion such as walking about 1 block. He states that he is sexually active and he is having difficulty with sexual activity secondary to becoming very short of breath. Patient states he is also getting some vague and dull chest discomfort over the mid aspect of his chest. On arrival here to the ED the patient is hypertensive at 223/114, he is otherwise saturating well on room air, he is in no acute distress on my initial assessment. ROS: - Per HPI *Outpatient medications and allergy history reviewed. *Pertinent external medical records reviewed. PE: General: Alert HEENT: Normocephalic, trachea midline Eyes: Extraocular eye movement is intact, no scleral erythema Pulmonary: Clear to auscultation bilaterally, no wheezing Cardio: Regular rate and rhythm GI: Abdomen is soft, nontender : No suprapubic tenderness MSK: No evidence of trauma or malformation of the extremities, no edema Skin: No evidence of rash Neuro: Alert, no focal deficits Psychiatric: Cooperative youth nutritional monitor: (As interpreted by myself): - An order was placed for continuous cardiac monitoring - Patient was noted to be in sinus rhythm with a rate of 75 EKG: (As interpreted by myself): Rate: 69 Rhythm: Sinus rhythm with occasional PVCs Intervals: Within normal limits ST changes: No ST elevation Time: 1940 Interventions provided in ED: -IV labetalol Medical Decision Making: Patient presented to the emergency department with a chief complaint of shortness of breath with exertion, complains of some generalized and dull chest discomfort. EKG shows sinus rhythm, overall appears similar to previous EKG in the system without evidence of ST elevation AK. Troponin result slightly elevated at 25, patient was given IV labetalol here in the ED for his elevated blood pressure with improvement to 183/118. Chest x-ray does not show any evidence of any acute disease, no evidence of any widened mediastinum to suggest aortic pathology, low suspicion for PE given that the patient is not tachycardic and he is saturating well on room air. Given the patient's existing hypertension as well as concerning symptoms for ACS, I did discuss the case with the on-call hospitalist, Dr. Mann, who is in agreement to admit the patient. Patient is in agreement for admission for further management and trending of troponin levels as well as close observation of his blood pressure. Patient was admitted in stable condition. Consultants: Hospitalist service, Dr. Mann Disposition discussion held by myself with: Patient * CRITICAL CARE TIME: ( 35 ) minutes -Management of hypertensive emergency in the setting of chest discomfort with mildly elevated troponin requiring IV labetalol for improvement in blood pressure, time spent at the bedside, discussion with other physicians and arrangement of admission, interpretation of diagnostic studies including EKG Diagnosis: 1. Hypertensive emergency 2. Elevated troponin 3. Chest pain, nonspecific, acute Disposition: Admission Jean Andrade DO Emergency Medicine Past Med/Surg History Medical History (Updated 05/27/22 @ 01:32 by Jean Andrade DO) High cholesterol Hypertension Tobacco abuse Surgical History (Updated 05/26/22 @ 21:57 by Helen Mann DO) Hx of bilateral hip replacements Family History (Updated 10/12/21 @ 15:43 by DIONNA Portillo) Father Coronary heart disease Cancer Lung cancer Mother Hypertension Denies family history of Ovarian cancer Prostate cancer Myocardial infarction Breast cancer Social History (Updated 05/26/22 @ 21:57 by Helen Mann DO) Smoking Status: Current every day smoker Tobacco Type: Cigarettes Second Hand Exposure: No; Hx Alcohol Use: Yes Hx Substance Use: No Preferred Language: Tajik Communication Ability: Effective Visual Impairment: No 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 Required: No Beliefs That Will Affect Care: None marital status: Single Current Living Situation: Alone current occupational status: employed How many Children do You have: 3 Feels Safe at Home: Yes Childhood Exposure to Second-Hand Smoke: Yes caffeine: Yes Dental Care, Regularly: Yes Physical Activity Frequency: Does not Exercise Seatbelt Use: always Sunscreen Use: Yes Assistive Devices: None Allergies Allergies Allergy/AdvReac Type Severity Reaction Status Date / Time No Known Allergies Allergy Unverified 10/12/21 15:40 Home Meds Previous Rx's Medication Instructions Recorded amlodipine 10 mg tablet 10 mg PO DAILY #30 tabs 10/19/21 atorvastatin 10 mg tablet 10 mg PO DAILY #30 tabs 10/19/21 carvedilol 6.25 mg tablet 6.25 mg PO BID #60 tabs 10/19/21 spironolactone 25 mg tablet 25 mg PO DAILY #30 tabs 10/19/21 Results & Data (ED) Vital Signs Vital Signs - 24 hr 05/26/22 18:34 05/26/22 21:00 05/26/22 21:31 Temperature 37.2 C Temperature Source Temporal Artery Scan Pulse Rate 76 Pulse Rate [Right Finger] 68 63 Respiratory Rate 20 18 20 Respiratory Effort / Characteristics Non-Labored Spontaneous Respiratory Depth Normal Respiratory Pattern Regular Blood Pressure 223/114 H Blood Pressure [Right Arm] 198/114 H 178/108 H Blood Pressure Mean 150 Blood Pressure Mean [Right Arm] 142 131 Pulse Oximetry 96 96 93 Oxygen Delivery Method Room Air Sepsis Recent Fever Within 48 Hours No Sepsis New/Unexplained Change in Mental Status No Sepsis Action Taken by Nursing No Action Required 05/26/22 21:07 Temperature 36.8 C Temperature Source Oral Pulse Rate Pulse Rate [Right Finger] Respiratory Rate Respiratory Effort / Characteristics Respiratory Depth Respiratory Pattern Blood Pressure Blood Pressure [Right Arm] Blood Pressure Mean Blood Pressure Mean [Right Arm] Pulse Oximetry Oxygen Delivery Method Sepsis Recent Fever Within 48 Hours Sepsis New/Unexplained Change in Mental Status Sepsis Action Taken by Nursing Laboratory Data 05/26/22 19:40 05/26/22 19:40 Lab Results 05/26/22 05/26/22 05/26/22 Range/Units 19:40 19:40 19:40 WBC 5.88 (4.8-10.8) K/ul RBC 5.39 (4.70-6.10) M/uL Hgb 15.8 (14.0-18.0) g/dl Hct 45.6 (42.0-52.0) % MCV 84.6 (80.0-100.0) fL MCH 29.3 (25.0-34.0) pg MCHC 34.6 (32.0-36.0) g/dL RDW Std Deviation 41.3 (36.4-46.3) fL RDW Coeff of Arturo 13.3 (11.5-14.5) % Plt Count 185 (130-400) K/uL MPV 11.1 (9.4-12.4) fL Immature Gran % (Auto) 0.5 % Neut % (Auto) 53.1 % Lymph % (Auto) 31.5 % [place] % (Auto) 7.1 % Eos % (Auto) 6.8 % Baso % (Auto) 1.0 % Neut # (Auto) 3.12 (1.40-6.50) K/uL Lymph # (Auto) 1.85 (1.2-3.4) K/uL [place] # (Auto) 0.42 (0.11-0.59) K/uL Eos # (Auto) 0.40 (0-0.50) K/uL Baso # (Auto) 0.06 (0-0.2) K/uL Immature Gran # (Auto) 0.03 (0.01-0.20) K/uL PT 11.0 (9.0-12.0) Seconds INR 1.0 (0.9-1.1) APTT 32.5 H (21.0-31.0) Seconds PTT Ratio 1.2 Sodium 138 (136-145) mmol/L Potassium 4.6 (3.5-5.1) mmol/L Chloride 104 (98-107) mmol/L Carbon Dioxide 31 (21-32) mmol/L Anion Gap 3 (3-11) BUN 11 (6-23) mg/dl Creatinine 0.96 (0.6-1.4) mg/dl Est Cr Clr Drug Dosing 92.8 ml/min Est GFR ( Amer) 97.8 ml/min Est GFR (Non-Af Amer) 84.4 ml/min BUN/Creatinine Ratio 11.5 (10-20) Glucose 83 (70-99(Fasting)) mg/dl Calcium 9.6 (8.5-10.1) mg/dl Magnesium 2.0 (1.7-2.4) mg/dl Total Bilirubin 0.5 (0.2-1.0) mg/dl AST 21 (13-39) U/L ALT 17 (7-52) U/L Alkaline Phosphatase 79 (34-104) U/L Troponin I High Sens 25.7 H (0-20) pg/ml Total Protein 8.2 (6.0-8.3) gm/dl Albumin 4.4 (3.4-5.0) gm/dl Globulin 3.8 (2.5-4.0) gm/dl Albumin/Globulin Ratio 1.2 (0.9-2) SARS-CoV-2, RNA, NAAT (NEGATIVE) 05/26/22 Range/Units 21:32 WBC (4.8-10.8) K/ul RBC (4.70-6.10) M/uL Hgb (14.0-18.0) g/dl Hct (42.0-52.0) % MCV (80.0-100.0) fL MCH (25.0-34.0) pg MCHC (32.0-36.0) g/dL RDW Std Deviation (36.4-46.3) fL RDW Coeff of Arturo (11.5-14.5) % Plt Count (130-400) K/uL MPV (9.4-12.4) fL Immature Gran % (Auto) % Neut % (Auto) % Lymph % (Auto) % [place] % (Auto) % Eos % (Auto) % Baso % (Auto) % Neut # (Auto) (1.40-6.50) K/uL Lymph # (Auto) (1.2-3.4) K/uL [place] # (Auto) (0.11-0.59) K/uL Eos # (Auto) (0-0.50) K/uL Baso # (Auto) (0-0.2) K/uL Immature Gran # (Auto) (0.01-0.20) K/uL PT (9.0-12.0) Seconds INR (0.9-1.1) APTT (21.0-31.0) Seconds PTT Ratio Sodium (136-145) mmol/L Potassium (3.5-5.1) mmol/L Chloride (98-107) mmol/L Carbon Dioxide (21-32) mmol/L Anion Gap (3-11) BUN (6-23) mg/dl Creatinine (0.6-1.4) mg/dl Est Cr Clr Drug Dosing ml/min Est GFR ( Amer) ml/min Est GFR (Non-Af Amer) ml/min BUN/Creatinine Ratio (10-20) Glucose (70-99(Fasting)) mg/dl Calcium (8.5-10.1) mg/dl Magnesium (1.7-2.4) mg/dl Total Bilirubin (0.2-1.0) mg/dl AST (13-39) U/L ALT (7-52) U/L Alkaline Phosphatase (34-104) U/L Troponin I High Sens (0-20) pg/ml Total Protein (6.0-8.3) gm/dl Albumin (3.4-5.0) gm/dl Globulin (2.5-4.0) gm/dl Albumin/Globulin Ratio (0.9-2) SARS-CoV-2, RNA, NAAT NEGATIVE (NEGATIVE) Administered Medications Albuterol (Albut/Ipratrop 3mg/0.5mg Neb 3 Ml Vial) 3 ml NEB Q4R HERB; Protocol Stop: 06/25/22 22:59 Last Admin: 05/27/22 00:37 Dose: Not Given Documented By: UZIEL Discontinued Medications Labetalol HCl (Labetalol Hcl Iv 5 Mg/Ml 20ml) 20 mg IV NOW STA Stop: 05/26/22 20:49 Last Admin: 05/26/22 21:22 Dose: 20 mg Documented By: MARA Co-signed By: MILAN Imaging Data Radiologist's Impression: Chest X-Ray 05/26/22 18:38 XR chest 1V portable CLINICAL HISTORY: Shortness of breath. Chest tightness. COMPARISON STUDY: Chest radiograph October 08, 2021. FINDINGS: Azygos fissure is incidentally noted. Lung volumes are normal. Lungs are clear. There is no pneumothorax or pleural effusion. Cardiac size is stable. Mediastinal contours are normal. There is no evidence for pulmonary edema. IMPRESSION: No acute cardiopulmonary findings. ACT 112: Negative or not required by law. Electronically signed by: Dionicio Dave M.D. 05/26/2022 7:12 PM Discharge Plan Visit Data Chief Complaint: Respiratory Problems Stated Complaint: RESPIRATORY ISSUES,FATIGUE,MUCUS ED Provider: Jean Andrade Discharge Problem: Hypertension, Elevated troponin, Chest discomfort Patient Disposition: Admitted As Inpatient Condition: Good Discharge Instructions Interventions: ED Discharge Assessment Last Done: 05/26/22 22:32
--- NOTE | 2022-05-26 21:37 | History & Physical Report ---
Date of Service May 26, 2022 Assessment & Plan (1) Hypertension: Plan: Hypertensive Urgency Levi Joshi is a 62yo male with history of HTN, HLP presenting with complaint of chest discomfort and SOB. Elevated blood pressure on arrival to 223/114. Now improved to 178/108 following 20mg Labetalol IV. Symptoms of chest discomfort did resolve prior to administration of Labetalol. Denies PINEDA, visual changes or focal neurological deficit. Patient reports compliance with his anti-hypertensive regimen. He is currently on Amlodipine, Carvedilol and Spironolactone. EKG with evidence of LVH. Echo performed in September 2021 with evidence of mild concentric LVH. Patient reports his blood pressure at home is frequently 170mmHg. -Admit to PCU -Monitor blood pressure - MAP on arrival 150. -Continue home anti-hypertensive regimen - Amlodipine, Spironolactone and Carvedilol. Goal MAP of 112 for now then gradual lowering to <140/90 -Consider initiation of ANTHONY/ARB for additional management -Discussed smoking cessation and effect on blood pressure -Brief internet review of honey-based sexual supplement - ?[employer] honey - may actually contain tadalafil. Would not expect that this is contributing to elevated blood pressure. (2) Chest discomfort: Plan: Now resolved. Patient with mild elevation of troponin to 25.7. EKG with LVH -Telemetry monitoring -Trend troponin (3) Shortness of breath: Plan: Patient with shortness of breath which has improved from earlier today. He has diffuse end-expiratory wheezing noted on exam. No respiratory distress. Saturating 93% on room air. He has long history of smoking. Still smokes 5 cigarettes daily. Does not have a known history of COPD. -DuoNebs -Albuterol as needed -Mucinex 600mg po q12 -Consider discharge with Spiriva and Albuterol HFA -May benefit from outpatient PFTs. (4) High cholesterol: Plan: Chronic. -Lipid panel for AM -Continue Atorvastatin 10mg po daily (5) Left arm numbness: Plan: Patient reports LUE numbness throughout the day yesterday. Now resolved. Neurologically intact with no deficits. Possible TIA in setting of markedly elevated blood pressure -Will check MRI brain -Check A1C and Lipid panel with AM labs -Continue Atorvastatin 10mg po daily for now - if CVA is present will need to increase dose and add an ASA (6) Tobacco abuse: Plan: Ongoing. Patient smokes 5 cigarettes daily -Smoking cessation counseling -Low dose nicotine patch ordered F/E/N - heplock. Electroltyes WNL. AHA/Low Na diet as tolerated PPx - Low risk for DVT - encourage ambulation Code - Full per discussion with patient Dispo - Admit to PCU History of Present Illness Chief Complaint: Chest tightness and SOB Primary Care Provider: NO PCP Levi Joshi is a 62yo male with HTN, HLP, active tobacco use presenting with 1 day of chest tightness and shortness of breath. Patient's symptoms began this AM 05/26/22 at 07:00 when he woke up. He reports feeling some discomfort in his abdomen which moved into his chest. He reports feeling tightness. Non- radiating, non-pleuritic. He had some associated diaphoresis as well as shortness of breath and wheezing. Also feeling like mucus is in his throat and chest and he is unable to clear it. He took his blood pressure at home and found it to be elevated at 210/104. Patient is compliant with his anti-hypertensives and has not missed any doses. He is presently on Amlodipine, Carvedilol and Spironolactone. He reports that his blood pressure at home is typically over 170mmHg. He denies headache. Did have some numbness in his left arm yesterday which lasted most of the day. Now resolved. Patient reports drinking 2 cups of coffee daily. No stimulant use. Patient did reveal to ER attending that he is taking a honey supplement to enhance sexual performance. He does smoke approximately 5 cigarettes daily. In the ER he is afebrile, hypertensive to 223/114, no respiratory distress, saturating 92% on room air ER Course: Labetalol 20mg IV Allergies Allergy/AdvReac Type Severity Reaction Status Date / Time No Known Allergies Allergy Unverified 10/12/21 15:40 Home Medications Medication Instructions Recorded Confirmed Type amlodipine 10 mg tablet 10 mg PO DAILY #30 tabs 10/19/21 05/26/22 Rx atorvastatin 10 mg tablet 10 mg PO DAILY #30 tabs 10/19/21 05/26/22 Rx carvedilol 6.25 mg tablet 6.25 mg PO BID #60 tabs 10/19/21 05/26/22 Rx spironolactone 25 mg tablet 25 mg PO DAILY #30 tabs 10/19/21 05/26/22 Rx Past Med/Surg History Medical History (Updated 05/26/22 @ 22:21 by Helen Mann DO) High cholesterol Hypertension Tobacco abuse Surgical History (Updated 05/26/22 @ 21:57 by Helen Mann DO) Hx of bilateral hip replacements Family History (Updated 10/12/21 @ 15:43 by DIONNA Portillo) Father Coronary heart disease Cancer Lung cancer Mother Hypertension Denies family history of Ovarian cancer Prostate cancer Myocardial infarction Breast cancer Social History (Updated 05/26/22 @ 21:57 by Helen Mann DO) Smoking Status: Current every day smoker Tobacco Type: Cigarettes Second Hand Exposure: No; Hx Alcohol Use: No Hx Substance Use: No Preferred Language: Mongolian Communication Ability: Effective Visual Impairment: No Limitations Ticket Attendant Required: No marital status: Single Current Living Situation: Alone current occupational status: employed How many Children do You have: 3 Feels Safe at Home: Yes Childhood Exposure to Second-Hand Smoke: Yes caffeine: Yes Dental Care, Regularly: Yes Physical Activity Frequency: Does not Exercise Seatbelt Use: always Sunscreen Use: Yes Assistive Devices: None Review of Systems Review of Systems: All systems reviewed & are unremarkable except as noted in HPI & below Physical Exam Physical Exam: General: patient resting comfortably, NAD, non-toxic in appearance, AA&O x 4 Skin: warm, dry, intact, no rashes or lesions HEENT: NC/AT, PERRL, EOMI, anicteric sclera, conjunctiva without injection, external ear normal to inspection and nontender, nares patent, moist mucus membranes, dentition intact, no oropharyngeal lesions, neck supple, trachea midline, no LAD, no thyromegaly, no JVD Heart: +S1/S2, regular, no m/r/g Lungs: equal air entry bilaterally, no rales/rhonchi, diffuse end-expiratory wheezing, no rhonchi Abd: +BS, soft, NT/ND, no masses/organomegaly/ascites Ext: warm, 2+ pulses in UE/LE bilaterally, no clubbing/cyanosis or edema Neuro: nonfocal, patient AA&O x 4, speech intact, no facial droop, moving all extremities on command with equal strength 5/5 Results & Data Results & Data ([facility]) Vital Signs (Past 12 Hours) Vital Signs Temp Pulse Pulse Resp BP BP Pulse Ox 05/26/22 21:31 63 20 178/108 H 93 05/26/22 21:00 68 18 198/114 H 96 05/26/22 18:34 37.2 C 76 20 223/114 H 96 O2 Del Method 05/26/22 21:31 05/26/22 21:00 05/26/22 18:34 Room Air Laboratory Results Laboratory Results WBC 5.88 K/ul (4.8-10.8) 05/26/22 19:40 RBC 5.39 M/uL (4.70-6.10) 05/26/22 19:40 Hgb 15.8 g/dl (14.0-18.0) 05/26/22 19:40 Hct 45.6 % (42.0-52.0) 05/26/22 19:40 MCV 84.6 fL (80.0-100.0) 05/26/22 19:40 MCH 29.3 pg (25.0-34.0) 05/26/22 19:40 MCHC 34.6 g/dL (32.0-36.0) 05/26/22 19:40 RDW Std Deviation 41.3 fL (36.4-46.3) 05/26/22 19:40 RDW Coeff of Arturo 13.3 % (11.5-14.5) 05/26/22 19:40 Plt Count 185 K/uL (130-400) 05/26/22 19:40 MPV 11.1 fL (9.4-12.4) 05/26/22 19:40 Immature Gran % (Auto) 0.5 % 05/26/22 19:40 Neut % (Auto) 53.1 % 05/26/22 19:40 Lymph % (Auto) 31.5 % 05/26/22 19:40 [place] % (Auto) 7.1 % 05/26/22 19:40 Eos % (Auto) 6.8 % 05/26/22 19:40 Baso % (Auto) 1.0 % 05/26/22 19:40 Neut # (Auto) 3.12 K/uL (1.40-6.50) 05/26/22 19:40 Lymph # (Auto) 1.85 K/uL (1.2-3.4) 05/26/22 19:40 [place] # (Auto) 0.42 K/uL (0.11-0.59) 05/26/22 19:40 Eos # (Auto) 0.40 K/uL (0-0.50) 05/26/22 19:40 Baso # (Auto) 0.06 K/uL (0-0.2) 05/26/22 19:40 Immature Gran # (Auto) 0.03 K/uL (0.01-0.20) 05/26/22 19:40 PT 11.0 Seconds (9.0-12.0) 05/26/22 19:40 INR 1.0 (0.9-1.1) 05/26/22 19:40 APTT 32.5 Seconds (21.0-31.0) H 05/26/22 19:40 PTT Ratio 1.2 05/26/22 19:40 Sodium 138 mmol/L (136-145) 05/26/22 19:40 Potassium 4.6 mmol/L (3.5-5.1) 05/26/22 19:40 Chloride 104 mmol/L (98-107) 05/26/22 19:40 Carbon Dioxide 31 mmol/L (21-32) 05/26/22 19:40 Anion Gap 3 (3-11) 05/26/22 19:40 BUN 11 mg/dl (6-23) 05/26/22 19:40 Creatinine 0.96 mg/dl (0.6-1.4) 05/26/22 19:40 Est Cr Clr Drug Dosing 92.8 ml/min 05/26/22 19:40 Est GFR ( Amer) 97.8 ml/min 05/26/22 19:40 Est GFR (Non-Af Amer) 84.4 ml/min 05/26/22 19:40 BUN/Creatinine Ratio 11.5 (10-20) 05/26/22 19:40 Glucose 83 mg/dl (70-99(Fasting)) 05/26/22 19:40 Calcium 9.6 mg/dl (8.5-10.1) 05/26/22 19:40 Magnesium 2.0 mg/dl (1.7-2.4) 05/26/22 19:40 Total Bilirubin 0.5 mg/dl (0.2-1.0) 05/26/22 19:40 AST 21 U/L (13-39) 05/26/22 19:40 ALT 17 U/L (7-52) 05/26/22 19:40 Alkaline Phosphatase 79 U/L (34-104) 05/26/22 19:40 Troponin I High Sens 25.7 pg/ml (0-20) H 05/26/22 19:40 Total Protein 8.2 gm/dl (6.0-8.3) 05/26/22 19:40 Albumin 4.4 gm/dl (3.4-5.0) 05/26/22 19:40 Globulin 3.8 gm/dl (2.5-4.0) 05/26/22 19:40 Albumin/Globulin Ratio 1.2 (0.9-2) 05/26/22 19:40 SARS-CoV-2, RNA, NAAT NEGATIVE (NEGATIVE) 05/26/22 21:32 Impressions Chest X-Ray 05/26/22 18:38 XR chest 1V portable CLINICAL HISTORY: Shortness of breath. Chest tightness. COMPARISON STUDY: Chest radiograph October 08, 2021. FINDINGS: Azygos fissure is incidentally noted. Lung volumes are normal. Lungs are clear. There is no pneumothorax or pleural effusion. Cardiac size is stable. Mediastinal contours are normal. There is no evidence for pulmonary edema. IMPRESSION: No acute cardiopulmonary findings. ACT 112: Negative or not required by law. Electronically signed by: Dionicio Dave M.D. 05/26/2022 7:12 PM ECG Additional Comments: EKG wt SR at 69bpm, normal axis, XS=338, PIU=496, XQe=326, LVH criteria, TWI in inferior leads PG Care Time/CCT Total # of Minutes Spent Total Time Spent with Patient: Total time spent is greater than 50% in coordination of care (as documented) at patient's floor/unit and/or counseling patient: Coding Level of Care Code 35313 INT INP/OBS CARE 3/75MIN Diagnoses Hypertension I10 Chest discomfort R07.89 Shortness of breath R06.02 High cholesterol E78.00 Left arm numbness R20.0 Tobacco abuse Z72.0
[2022-05-26] MEDS ORDERED: ONDANSETRON INJ 2 MG/ML 2 ML VIAL IV PRN (22:55)
[2022-05-26] MEDS ORDERED: ACETAMINOPHEN 325 MG TAB PO PRN (22:55)
[2022-05-26] MEDS ORDERED: ALBUTEROL 0.5% NEB SOLN 2.5 MG/0.5 ML VIAL NEB PRN (22:55)
[2022-05-27] MEDS: ALBUT/IPRATROP 3MG/0.5MG NEB 3 ML VIAL NEB SCH ×6 (00:37→19:14)
[2022-05-27] MEDS: carvediloL 6.25 MG TAB PO SCH ×2 (08:30→19:21)
[2022-05-27] MEDS: guaiFENesin 600 MG TABCR PO SCH ×2 (08:30→19:21)
[2022-05-27 08:38] LABS: Hematocrit (blood only) 41.8 % (42.0-52.0); Hemoglobin 14.4 g/dl (14.0-18.0); Mean Corpuscular Hemoglobin 29.1 pg (25.0-34.0); Mean Corpuscular Hgb Conc 34.4 g/dL (32.0-36.0); Mean Corpuscular Volume 84.4 fL (80.0-100.0); Mean Platelet Volume 11.4 fL (9.4-12.4); Platelet Count 181 K/uL (130-400); RDW Coefficient of Variation 13.1 % (11.5-14.5); RDW Standard Deviation 40.6 fL (36.4-46.3); Red Blood Count 4.95 M/uL (4.70-6.10); White Blood Count 6.38 K/ul (4.8-10.8)
[2022-05-27 08:58] LABS: BUN Creatinine Ratio 12.7 (10-20); Calcium 9.3 mg/dl (8.5-10.1); Chol HDL Ratio 4.6 (0-5); Creatinine Clr Calc Pharmacy 87.3 ml/min; Est GFR (African American) 90.9 ml/min; Est GFR (Non-African American) 78.4 ml/min; Potassium 3.9 mmol/L (3.5-5.1)
[2022-05-27] MEDS ORDERED: ATORVASTATIN 10 MG TAB PO SCH (09:00)
[2022-05-27] MEDS ORDERED: amLODIPine BESYLATE 5 MG TAB PO SCH (09:00)
[2022-05-27] MEDS ORDERED: SPIRONOLACTONE 25 MG TAB PO SCH (09:00)
[2022-05-27] MEDS ORDERED: NICOTINE 7 MG/24 HR TDSY TD SCH (09:00)
[2022-05-27 09:02] LABS: Troponin I High Sensitivity 25.2 pg/ml (0-20)
[2022-05-27 09:04] LABS: Estimated Average Glucose 123 mg/dl; Hemoglobin A1C 5.9 % (4.5-5.6)
[2022-05-27] MEDS ORDERED: LORazepam 2 MG/1 ML VIAL IV STA (10:18)
[2022-05-27] MEDS ORDERED: GADOBUTROL 65ML VIAL IV ONE (11:48)
--- NOTE | 2022-05-27 12:15 | Magnetic Resonance Report ---
Brain MRI WITH AND WITHOUT CONTRAST HISTORY: left arm numbness TECHNIQUE: Multiplanar multisequence MRI of the brain was performed both before and after the intrave nous administration of contrast. COMPARISON STUDY: None. FINDINGS: Motion artifact. There is no mass, hematoma, midline shift, or acute infarct. The paranasal sinuses are clear. The mastoid air cells are clear. The ventricles and sulci demonstrate mild age-re lated involutional changes. Scattered foci of T2 hyperintensity seen within the periventricular and s ubcortical white matter are nonspecific but suggestive of mild microvascular ischemic changes. The ma mulu vascular flow voids at the skull base are well-maintained. There are old infarcts within the bila teral basal ganglia and an old lacunar infarct within the carley. No abnormal enhancement. IMPRESSION: 1. Suboptimal evaluation due to motion artifact. 2. No definite acute infarct or intracranial hemorrhage identified. 3. Mild atrophy and microvascular ischemic changes. 4. 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 ACT 112: Negative or not required by law. Electronically signed by: Arian Jenkins M.D. 05/27/2022 12:13 PM
[2022-05-27] MEDS ORDERED: lisinopril 10 MG TAB PO SCH (13:45)
[2022-05-27] MEDS ORDERED: hydrALAZINE HCL 20 MG/ML VIAL IV STA (16:59)
[2022-05-27] MEDS ORDERED: OPTIRAY 320 500ml IV ONE (18:04)
--- NOTE | 2022-05-27 18:51 | CT Scan Report ---
HEAD & NECK CTA HISTORY: Left arm numbness. TECHNIQUE: Multiaxial CT images of the head were performed following the intravenous administration of contrast to evaluate the major cerebral vessels. Multiaxial CT images of the neck were also perfor med following the intravenous administration of contrast to evaluate the major cervical vessels. Maxi mum intensity projection images were also obtained. A dose lowering technique was utilized adhering t o the principles of ALARA. COMPARISON: Brain MRI 05/27/2022. FINDINGS: Moderate calcified plaque within the bilateral carotid siphons resulting in mild multifocal stenosis. The basilar artery and distal vertebral arteries appear patent. No significant stenosis, occlusion, aneurysm within the bilateral ACAs are MCAs. There is a focal area of moderate narrowing within the p roximal right PRINT COLOR OPERATOR on image 107 and a focal area of severe narrowing within the distal right PRINT COLOR OPERATOR on im age 89. The left PRINT COLOR OPERATOR is widely patent. No arterial occlusion identified. The major dural venous sinu ses are patent. Old bilateral basal ganglia infarcts again noted. The aortic arch and proximal great vessels are widely patent. There is no significant stenosis, occ lusion, or dissection identified within the bilateral common carotid or internal carotid arteries. Mo derate to severe focal narrowing at the takeoff of the right vertebral artery of approximately 75%. F ocal fenestration within the distal left cervical vertebral artery which is considered to be a normal variant.. There is bullous emphysema seen within the right lung. Incidental note is made of a right azygos lobe. There is a 6 mm nodule within the left upper lobe on image 24. This is partially obscure d by the motion artifact. No pneumothorax. IMPRESSION: 1. Multifocal areas of stenosis within the right PRINT COLOR OPERATOR without evidence for arterial occlusion. 2. Moderate to severe focal narrowing at the takeoff of the right vertebral artery. 3. No significant stenosis within the bilateral common or cervical internal carotid arteries. 4. Moderate calcified plaque within the bilateral intracranial internal carotid arteries resulting in mild multifocal stenosis. 5. Old bilateral basal ganglia infarct again noted. ACT 112: Negative or not required by law. Electronically signed by: Arian Jenkins M.D. 05/27/2022 6:49 PM
--- NOTE | 2022-05-27 18:51 | CT Scan Report ---
HEAD & NECK CTA HISTORY: Left arm numbness. TECHNIQUE: Multiaxial CT images of the head were performed following the intravenous administration of contrast to evaluate the major cerebral vessels. Multiaxial CT images of the neck were also perfor med following the intravenous administration of contrast to evaluate the major cervical vessels. Maxi mum intensity projection images were also obtained. A dose lowering technique was utilized adhering t o the principles of ALARA. COMPARISON: Brain MRI 05/27/2022. FINDINGS: Moderate calcified plaque within the bilateral carotid siphons resulting in mild multifocal stenosis. The basilar artery and distal vertebral arteries appear patent. No significant stenosis, occlusion, aneurysm within the bilateral ACAs are MCAs. There is a focal area of moderate narrowing within the p roximal right DIE REPAIR on image 107 and a focal area of severe narrowing within the distal right DIE REPAIR on im age 89. The left DIE REPAIR is widely patent. No arterial occlusion identified. The major dural venous sinu ses are patent. Old bilateral basal ganglia infarcts again noted. The aortic arch and proximal great vessels are widely patent. There is no significant stenosis, occ lusion, or dissection identified within the bilateral common carotid or internal carotid arteries. Mo derate to severe focal narrowing at the takeoff of the right vertebral artery of approximately 75%. F ocal fenestration within the distal left cervical vertebral artery which is considered to be a normal variant.. There is bullous emphysema seen within the right lung. Incidental note is made of a right azygos lobe. There is a 6 mm nodule within the left upper lobe on image 24. This is partially obscure d by the motion artifact. No pneumothorax. IMPRESSION: 1. Multifocal areas of stenosis within the right DIE REPAIR without evidence for arterial occlusion. 2. Moderate to severe focal narrowing at the takeoff of the right vertebral artery. 3. No significant stenosis within the bilateral common or cervical internal carotid arteries. 4. Moderate calcified plaque within the bilateral intracranial internal carotid arteries resulting in mild multifocal stenosis. 5. Old bilateral basal ganglia infarct again noted. ACT 112: Negative or not required by law. Electronically signed by: Arian Jenkins M.D. 05/27/2022 6:49 PM
--- NOTE | 2022-05-27 19:12 | Discharge Summary ---
Date of Service May 27, 2022 Admission HPI Per Admitting Provider Levi Joshi is a 62yo male with HTN, HLP, active tobacco use presenting with 1 day of chest tightness and shortness of breath. Patient's symptoms began this AM 05/26/22 at 07:00 when he woke up. He reports feeling some discomfort in his abdomen which moved into his chest. He reports feeling tightness. Non- radiating, non-pleuritic. He had some associated diaphoresis as well as shortness of breath and wheezing. Also feeling like mucus is in his throat and chest and he is unable to clear it. He took his blood pressure at home and found it to be elevated at 210/104. Patient is compliant with his anti-hypertensives and has not missed any doses. He is presently on Amlodipine, Carvedilol and Spironolactone. He reports that his blood pressure at home is typically over 170mmHg. He denies headache. Did have some numbness in his left arm yesterday which lasted most of the day. Now resolved. Patient reports drinking 2 cups of coffee daily. No stimulant use. Patient did reveal to ER attending that he is taking a honey supplement to enhance sexual performance. He does smoke approximately 5 cigarettes daily. In the ER he is afebrile, hypertensive to 223/114, no respiratory distress, saturating 92% on room air ER Course: Labetalol 20mg IV Principal Diagnosis Hypertensive urgency Chest pain-likely noncardiac Old ischemic CVA Cerebrovascular disease Discharge Exam Vitals reviewed Gen: AAOx3, NAD HEENT: Anicteric sclerae, EOMI CV: RRR no mgr nl S1S2, no carotid bruits Pulm: CTAB no wcr Abd: +BS soft NT ND no masses or hernias Ext: No edema, 2+ DP pulses Skin: No rashes, warm/dry Neuro: Full strength throughout, cranial nerves II through XII intact, gait normal Discharge Data Allergies Allergy/AdvReac Type Severity Reaction Status Date / Time No Known Allergies Allergy Unverified 10/12/21 15:40 Consultations 05/26/22 21:08 ED Decision to Admit Stat Ordered Studies 05/27/22 07:57 MR brain wo/w con Routine 05/27/22 13:22 CTA head w con [CT angio head w con] Routine CTA neck with con [CT angio neck with con] Routine Hospital Course (1) Hypertension: Hypertensive Urgency Levi Joshi is a 62yo male with history of HTN, HLP presenting with complaint of chest discomfort and SOB. Elevated blood pressure on arrival to 223/114. Blood pressure then improved to 178/108 following 20mg Labetalol IV. Symptoms of chest discomfort did resolve prior to administration of Labetalol. Denies PINEDA, visual changes or focal neurological deficit other than some left upper extremity numbness. Patient reports compliance with his anti-hypertensive regimen. He is currently on Amlodipine, Carvedilol and Spironolactone. EKG with evidence of LVH similar to previous. Echo performed in September 2021 with evidence of mild concentric LVH. Patient reports his blood pressure at home is frequently 170mmHg. Echocardiogram on 05/27 shows moderate LVH, asymmetric hypertrophy of the interventricular septum and apex with hyperechogenicity, preserved EF. He desperately needs improved blood pressure control -He was admitted to PCU for telemetry monitoring and had only normal sinus rhythm and sinus bradycardia with rates in the 50s to 60s, PVCs and PACs -His blood pressure remained elevated and he was started on lisinopril 10 mg p.o. daily which will be increased to 20 mg daily on discharge -He was requiring 1 dose of IV hydralazine as well during his hospitalization -Continue home anti-hypertensive regimen - Amlodipine, Spironolactone and Carvedilol -Discussed smoking cessation and effect on blood pressure -Brief internet review of honey-based sexual supplement - ?[place] honey - may act ually contain tadalafil. Would not expect that this is contributing to elevated blood pressure. Continue to follow blood pressures at home and with primary care provider after discharge Needs follow-up BMP in 1 to 2 weeks after starting lisinopril in order to monitor renal function and potassium levels (2) Chest discomfort: Resolved prior to arrival, with associated left upper extremity numbness. Patient with mild elevation of troponin to 25.7 and troponin then remained stable x2 on serial testing. EKG with LVH and T wave inversions inferiorly which is similar to previous He has risk factors for CAD to include uncontrolled hypertension, family history, and smoking. He reports that prior to 3 months ago, he would frequently ride his bike for many miles at a time and go for walks up and down hills and never has any chest pain or dyspnea. Even in the last 3 months, he can carry heavy objects and go up and down stairs without any chest pains or shortness of breath. He is not a diabetic and his lipid panel is controlled -Continue aspirin 81 mg daily as he was taking at home -Increase home atorvastatin to 40 mg p.o. daily in light of presumed CAD and with CVA seen on MRI brain -Continue carvedilol at home dose -With blood pressure control as above-adding lisinopril He is safe for discharge to home but should have outpatient nuclear medicine stress test as discussed with the on-call landscaping specialist today. This can be arranged through the PCP. He should not have an exercise stress test given his elevated blood pressures as per cardiology recommendation. (3) Shortness of breath: Patient with shortness of breath which has improved from earlier today. He had diffuse end-expiratory wheezing noted on exam on admission which then improved. No respiratory distress. Saturating 93% on room air. He has long history of smoking. Still smokes 5 cigarettes daily. Does not have a known history of COPD. -DuoNebs were given -May benefit from outpatient PFTs. -Encouraged smoking cessation Of note, he has been coughing up some clear sputum which does cause him to gag and he did vomit once on the day of discharge after coughing up sputum (4) History of CVA (cerebrovascular accident): Complaint of left upper extremity numbness the day of admission which resolved spontaneously He then later after admission told me about an episode of left hemiparesis that occurred lasting 5 minutes about 3 weeks ago MRI of the brain was completed here which did have some motion artifact but did not show any definite acute CVA. Found to have old bilateral basal ganglia infarcts as well as a carley infarct. 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 There is nothing that requires urgent intervention despite the stenoses in the posterior circulation Continue medical management to prevent stroke He does not have diabetes -Continue aspirin 81 mg daily, increase atorvastatin to 40 mg daily high intensity -Blood pressure control as above -Encouraged smoking cessation (5) High cholesterol: Chronic. Lipid panel acceptable but due to old CVAs seen on brain MRI, increase atorvastatin to high intensity at 40 mg daily (6) Tobacco abuse: Ongoing. Patient smokes 5 cigarettes daily -Smoking cessation counseling -Low dose nicotine patch ordered while here and encouraged him to buy nicotine patches as an outpatient Plan Disposition-stable for discharged home, doing well, blood pressures better controlled, symptom-free. Follow-up closely with PCP. Care discussed with patient and his significant other at the bedside prior to discharge Total Time Total Time Spent Total Time Spent (In Minutes): 40 minutes Discharge Plan Discharge Items Patient Disposition: Home - Self-Care Reason For Visit: CHEST PAIN, HYPERTENSION Discharge Diagnosis: Hypertensive urgency, chest pain, old stroke, cerebrovascular disease Condition on Discharge: Good Activity: Resume your previous activity Non-emergency contact: Primary Care Provider Call non-emergency contact if: you have any medication questions and your symptoms worsen Follow-up/Referrals: Alex Chu PA-C [Physician Manager Drilling] - (Please call for a follow-up appointment within 1 week.) PCP,NO [Primary Care Provider] - Diet: Heart Healthy Addtl Attending Provider Instructions: You were admitted to the hospital with chest pain and left arm numbness with severely elevated blood pressures. You did not have a heart attack, but a blood test showed that your heart is under strain from your high blood pressures. It is recommended that you have a cardiac nuclear medicine stress test done within the next couple of weeks as an outpatient. You will need to follow-up with your primary care provider to have this arranged for you. It is possible that your chest pain could have been from acid reflux. You can take a 2-week course of Protonix to see if this helps keep this from happening. Your blood pressures were quite elevated and you were started on a new medication to help control this called lisinopril. You should continue taking all of your other usual medications for blood pressure as before. You should have blood work to check your kidney function in 1 to 2 weeks. This can be ordered by your primary care physician. You had an MRI of the brain which showed that you have had small old strokes in the past but not a recent stroke. You had a CT angiogram which is a scan of the blood vessels of the brain and neck. This did show that you have some narrowing of the blood vessels that supply blood to your brain. This is from high blood pressure and buildup of plaque. You should continue taking a baby aspirin a day and your atorvastatin dose will be increased to 40 mg daily to help prevent future strokes. It is very important that you control your blood pressure as we discussed. Please quit smoking immediately as this will also help lower your blood pressure and reduce your risk for stroke or heart attack. Risk Factors for Stroke: You can reduce your chances of stroke by working with your medical provider to adopt a healthy lifestyle. Some specific ways to lower your chance of stroke are: * If you are a smoker, now is the time to stop smoking cigarettes * If you are diabetic, improve the control of your blood sugars * Avoid excessive amounts of alcohol * Control high blood pressure * Lose weight if you are overweight * Be sure to lead an active lifestyle * Eat a healthy diet low in salt, cholesterol and fat You should know about other risk factors for stroke that you are unable to control. These include: * Age 55 years or older * Male gender * Certain racial groups: , or / * Family History of Stroke, Mini stroke or Heart Attack * Sickle Cell Disease Follow Up: It is important for you to keep your follow up appointments with your medical provider. Who to Call and When: Medical Emergencies: Call 911 immediately if you experience any of the following warning signs and symptoms of Stroke: * Sudden numbness or weakness of the face, arm or leg, especially on one side of the body * Sudden confusion, trouble speaking or understanding * Sudden trouble seeing in one or both eyes * Sudden trouble walking, dizziness, loss of balance or coordination * Sudden severe headache with no cause Do not delay calling 911 if you experience any warning signs or symptoms of a stroke. Delay in seeking medical attention may affect what treatments can be given to you. . Pending Studies at Discharge: No Stand-Alone Forms: My [facility], Smoking Cessation Medications and DC Order Prescriptions: New atorvastatin 40 mg Tablet 40 mg PO DAILY Qty: 30 0RF lisinopril 20 mg tablet 20 mg PO DAILY Qty: 30 0RF aspirin 81 mg tablet,delayed release (DR/EC) 81 mg PO DAILY Qty: 30 0RF Rx Instructions: [id number] pantoprazole 40 mg tablet,delayed release (DR/EC) 40 mg PO QAM Qty: 14 0RF Continued spironolactone 25 mg tablet 25 mg PO DAILY Qty: 30 5RF carvedilol 6.25 mg tablet 6.25 mg PO BID Qty: 60 5RF amlodipine 10 mg tablet 10 mg PO DAILY Qty: 30 5RF Discontinued atorvastatin 10 mg tablet 10 mg PO DAILY Qty: 30 5RF Discharge Orders: Discharge Order (Routine); Ordered 05/27/22 Ordered By: [place] Morrissey Admission Data Admit Date/Time: 05/26/22 21:36 Attending Provider: [place] Morrissey Admit Provider: Helen Mann Primary Care Provider: PCP,NO Other Providers: Helen Mann Coding Level of Care Code HOSP INP/OBS DISCH >30 MIN Diagnoses Hypertension I10 Chest discomfort R07.89 Shortness of breath R06.02 History of CVA (cerebrovascular accident) Z86.73 High cholesterol E78.00 Tobacco abuse Z72.0
--- NOTE | 2022-05-27 22:39 | Electrocardiogram Report ---
Test Reason : Blood Pressure : / mmHG Vent. Rate : 069 BPM Atrial Rate : 069 BPM P-R Int : 182 ms QRS Dur : 100 ms QT Int : 382 ms P-R-T Axes : 073 063 -05 degrees QTc Int : 409 ms Sinus rhythm with occasional Premature ventricular complexes Voltage criteria for left ventricular hypertrophy Abnormal ECG When compared with ECG of 08-OCT-2021 10:25, Premature atrial complexes are no longer Present Non-specific change in ST segment in Lateral leads Inverted T waves have replaced nonspecific T wave abnormality in Inferior leads T wave inversion no longer evident in Anterolateral leads Confirmed by Tenzin Baldwin ([id number]) on 05/27/2022 10:38:39 PM Referred By: REFERRED SELF Confirmed By:Tenzin Baldwin
[2022-05-28] MEDS ORDERED: ATORVASTATIN 40 MG TAB PO SCH (09:00)
== END 2022-05-27 20:00 | disposition home or self-care (01) ==
LOC: 4W 17:36 → ED 17:36 → SUATTDRO 21:36 → 4W 22:32